=== PATIENT | female | born 1950 | race African-American/Black ===

== ENCOUNTER → 2017-03-17 | Outpatient (CLI) | payer MEDICARE ==
[~2017-03-17] MED LIST: ALENDRONATE SOD70 MG; AMLODIPINE BESY10 MG PO; CALTRATE 600 W1 EACH PO; PRESERVISION A1 EACH; SIMVASTATIN40 MG PO; VITAMIN D1000 UNI1 PO
== END ==
LOC: MAMMO 11:44
PROVIDERS: ATTEND Internal Medicine
DX: Z12.31 Encounter for screening mammogram for malignant neoplasm of breast (principal)
CPT/HCPCS: G0202

== ENCOUNTER → 2018-02-02 | Outpatient (CLI) | payer MEDICARE ==
--- NOTE | 2018-02-11 08:24 | Diagnostic Imaging Report ---
#[id number] - MGSCRBIL #BILATERAL DIGITAL SCREENING MAMMOGRAM WITH CAD: 02/02/2018 CLINICAL: Routine screening. Comparison is made to exams dated: 03/17/2017 mammogram and 05/23/2014 mammogram - [facility]. Current study contains 4 films. There are scattered fibroglandular elements in both breasts. Current study was also evaluated with a Computer Aided Detection (CAD) system. There are scar markers on both breasts. Lymph nodes in the left axilla have a benign appearance. No significant masses, calcifications, or other findings are seen in either breast. There has been no significant interval change. IMPRESSION: BENIGN There is no mammographic evidence of malignancy. A 1 year screening mammogram is recommended. The patient will be notified by letter of the results. Freedom Ruiz Jr., D.O. cw/:02/10/2018 11:22:34 Personal Development Educator: Ilana LINCOLN)(Lisa), [facility] letter sent: Compared to Prior B9 Mammogram BI-RADS: 2 Benign
== END ==
LOC: MAMMO 09:17
PROVIDERS: ATTEND Internal Medicine
DX: Z12.31 Encounter for screening mammogram for malignant neoplasm of breast (principal)
CPT/HCPCS: 77067

== ENCOUNTER → 2018-05-20 | Outpatient (CLI) | payer MEDICARE ==
--- NOTE | 2018-05-20 14:03 | Diagnostic Imaging Report ---
EXAM: CHEST 2 VIEWS, PA and lateral DATE: 05/20/2018 Time stamp on exam: 1:30 PM INDICATION: Bronchitis COMPARISON: None FINDINGS: LINES/TUBES: None LUNGS: No consolidations or edema. PLEURA: No effusions or pneumothorax. HEART AND MEDIASTINUM: Normal size and contour. BONES AND SOFT TISSUES: No acute findings. Mild degenerative changes and mild wedging of a mid thoracic spine vertebral body. IMPRESSION: No acute thoracic abnormality. Signed by: Dr. Freedom Ruiz DO on 05/20/2018 1:59 PM
== END ==
LOC: RAD 13:13
PROVIDERS: ATTEND Internal Medicine
DX: J41.0 Simple chronic bronchitis (principal)
CPT/HCPCS: 71046

== ENCOUNTER → 2019-03-31 | Outpatient (CLI) | payer MEDICARE | LOC: MAMMO 10:37 | PROVIDERS: ATTEND Internal Medicine | DX: Z12.31 Encounter for screening mammogram for malignant neoplasm of breast (principal) | CPT/HCPCS: 77067 ==

== ENCOUNTER → 2019-05-11 | Day surgery (SDC) | payer MEDICARE ==
[2019-05-04 12:41] LABS: BASOPHILS % 0.1 % (0.0-1.0); HEMATOCRIT 36.9 % (34.2-44.1); HEMOGLOBIN 11.9 g/dL (12.0-16.0); LYMPHOCYTES # (AUTO) 1.8 (1.0-3.2); LYMPHOCYTES % 16.3 % (18.0-39.1); MEAN CORPUSCULAR HEMOGLOBIN 29.7 pg (28-32); MEAN CORPUSCULAR HGB CONC 32.2 g/dL (31-35); MONOCYTES # (AUTO) 0.9 (0.2-0.8); MONOCYTES % 8.4 % (4.4-11.3); NEUTROPHILS # (AUTO) 8.4 (2.1-6.9); NEUTROPHILS % 74.8 % (38.7-80.0); PLATELET COUNT 213 x10e3/uL (140-360); RED BLOOD COUNT 4.01 x10e6/uL (3.6-5.1); RED CELL DISTRIBUTION WIDTH 11.9 % (11.7-14.4)
[~2019-05-11] MED LIST changes: -ALENDRONATE SOD70 MG; +ALENDRONATE SOD70 MG PO; +FENTANYL CITRATE/PF 100MCG/2 ML INJ ONE; +GABAPENTIN100 MG PO; +GENERLAC10 GM/15 M PO; +HYOSCYAMINE 0.125 MG TAB ONE; +LOSARTAN POTASS25 MG PO; +MIDAZOLAM HCL 2 MG/2 ML VIAL ONE; +PROPOFOL IV EMULSION 10 MG/ML 50 ML VIAL ONE
--- OUTSIDE RECORDS SUMMARY | 2019-05-11 06:28 | XMS REPORT ---
Author Author [facility] Address Unknown Phone Unavailable Care Team Providers Care Info Specialist Name Role Phone Lisa WAY Unavailable Unavailable KEERTHI OLVERA Unavailable Unavailable Kishore BARTON Unavailable Unavailable Problems This patient has no known problems. Allergies, Adverse Reactions, Alerts This patient has no known allergies or adverse reactions. Medications This patient has no known medications. Results Test Description Test Time Test Comments Text Results Atomic Results Result Comments MAMMOGRAPHY DIGITAL SCR BILAT 2019-03-31 11:19:00 [place] [address] Patient Name: AMOR MATHIAS MR #: [id number] : 1950 Age/Sex: 69/F Req #: [id number] Adm Physician: Ordered by: TODD WAY MD Report #: [id number] Location: MAMMO Room/Bed: Procedure: [id number] MG/MAMMOGRAPHY DIGITAL SCR BILAT Exam Date: 03/31/19 Exam Time: 1040 REPORT STATUS: Signed #[id number] - MGSCRBIL #BILATERAL DIGITAL SCREENING MAMMOGRAM WITH CAD: 03/31/2019 CLINICAL: Routine screening. Comparison is made to exams dated: 02/02/2018 mammogram, 03/17/2017 mammogram, 02/06/2016 mammogram and 05/23/2014 mammogram - [facility]. Current study contains 4 films. There are scattered fibroglandular elements in both breasts. Current study was also evaluated with a Computer Aided Detection (CAD) system. There is a benign intramammary node in the left breast. No significant masses, calcifications, or other findings are seen in either breast. IMPRESSION: BENIGN There is no mammographic evidence of malignancy. A 1 year screening mammogram is recommended. The patient will be notified by letter of the results. LIT BILL M.D. ct/lizett:04/01/2019 16:32:56 Senior Lead Java Developer: Ilana LINCOLN)(Lisa), [facility] letter sent: Normal Exam Mammogram BI-RADS: 2 Benign Dictated By: LIT BILL MD Elec tronically Signed By: LIT BILL MD on 04/01/19 1632 Transcribed By: LIZETT on 04/01/19 163 COPY TO: TODD WAY MD CHEST 2 VIEWS 2018-05-20 13:58:00 [place] [address] Patient Name: AMOR MATHIAS MR #: [id number] : 1950 Age/Sex: 68/F Req #: [id number] Adm Physician: Ordered by: TODD WAY MD Report #: [id number] Location: [facility] Room/Bed: Procedure: [id number] DX/CHEST 2 VIEWS Exam Date: 05/20/18 Exam Time: 1325 REPORT STATUS: Signed EXAM: CHEST 2 VIEWS, PA and lateral DATE: 05/20/[address] amp on exam: 1:30 PM INDICATION: Bronchitis COMPARISON: None FINDINGS: LINES/TUBES: None LUNGS: No consolidations or edema. PLEURA: No effusions or pneumothorax. HEART AND MEDIASTINUM: Normal size and contour. BONES AND SOFT TISSUES: No acute findings. Mild degenerative changes and mild wedging of a mid thoracic spine vertebral body. IMPRESSION: No acute thoracic abnormality. Signed by: Dr. Marianela Ruiz DO on 05/20/2018 1:59 PM Dictated By: MARIANELA RUIZ DO [id number] Transcribed By: MARY on 05/20/18 3219 COPY TO: TODD WAY MD MAMMOGRAPHY DIGITAL SCR BILAT 2018-02-02 09:58:00 [place] [address] Patient Name: AMOR MATHIAS MR #: [id number] : 1950 Age/Sex: 68/F Req #: [id number] Adm Physician: Ordered by: TODD WAY MD Report #: [id number] Location: MAMMO Room/Bed: Procedure: [id number] MG/MAMMOGRAPHY DIGITAL SCR BILAT Exam Date: 02/02/18 Exam Time: 0920 REPORT STATUS: Signed #[id number] - MGSCRBIL #BILATERAL DIGITAL SCREENING MAMMOGRAM WITH CAD: 02/02/2018 CLINICAL: Routine screening. Comparison is made to exams dated: 03/17/2017 mammogram and 05/23/2014 mammogram - [facility]. Current study contains 4 films. There are scattered fibroglandular elements in both breasts. Current study was also evaluated with a Computer Aided Detection (CAD) system. There are scar markers on both breasts. Lymph nodes in the left axilla have a benign appearance. No significant masses, calcifications, or other findings are seen in either breast. There has been no significant interval change. IMPRESSION: BENIGN There is no mammographic evidence of malignancy. A 1 year screening mammogram is recommended. The patient will be notified by letter of the results. Marianela Ruiz Jr., D.O. cw/:02/10/2018 11:22:34 Senior Lead Java Developer: Ilana YANES (R)(Lisa), [facility] letter sent: Compared to Prior B9 Mammogram BI- RADS: 2 Benign Dictated By: MARIANELA RUIZ DO 112 Transcribed By: LIZETT on 02/10/18 112 COPY TO: TODD WAY MD MAMMOGRAPHY DIGITAL SCR BILAT [place] [address] Patient Name: AMOR MATHIAS MR #: [id number] : 1950 Age/Sex: 67/F Req #: [id number] Adm Physician: Ordered by: TODD WAY MD Report #: [id number] Location: MAMMO Room/Bed: Procedure: [id number] MG/MAMMOGRAPHY DIGITAL SCR BILAT Exam Date: 03/17/17 Exam Time: 1206 REPORT STATUS: Signed #[id number] - MGSCRBIL #BILATERAL DIGITAL SCREENING MAMMOGRAM WITH CAD: 03/17/2017 CLINICAL: Routine screening. Comparison is made to exams dated: 02/06/2016 mammogram, 05/23/2014 mammogram and 05/18/2013 mammogram - [facility]. Current study contains 4 films. There are scattered fibroglandular elements in both breasts. Current study was also evaluated with a Computer Aided Detection (CAD) system. No significant masses, calcifications, or other findings are seen in either breast. There is a scar marker on the left breast. There has been no significant interval change. IMPRESSION: NEGATIVE There is no mammographic evidence of malignancy. A 1 year screening mammogram is recommended. The patient will be notified by letter of the results. Marianela Ruiz Jr., D.O. cw/:04/01/2017 12:31:26 Senior Lead Java Developer: Ilana LINCOLN)(Lisa), [facility] letter sent: Compared to Prior B9 Mammogram BI-RADS: 1 Negative Dictated By: MARIANELA RUIZ DO 1231 Transcribed By: LIZETT on 04/01/17 1231 COPY TO: TODD WAY MD CHEST 2 VIEWS [place] [address] Patient Name: AMOR MATHIAS MR #: [id number] : 1950 Age/Sex: 66/F Req #: [id number] Adm Physician: Ordered by: KEERTHI OLVERA MD Report #: [id number] Location: OR Room/Bed: Procedure: [id number] DX/CHEST 2 VIEWS Exam Date: 12/15/16 Exam Time: 1215 REPORT STATUS: Signed PROCEDURE: CHEST 2 VIEWS TECHNIQUE: PA lateral chest INDICATION: Preoperative chest x-ray for right ankle surgery COMPARISON: None. FINDINGS: The lungs are clear and symmetrically inflated. No pleural effusions. Normal heart size and central vasculature. Intact skeleton. Mild degenerative disc disease. CONCLUSION: Normal. Dictated by: Joe Milian M.D. on 12/15/2016 at 13:55 El ectronically approved by: Joe Milian M.D. on 12/15/2016 at 13:55 Dictated By: JOE MILIAN MD 1356 Transcribed By: KRISTINA on 12/15/16 135 COPY TO: KEERTHI OLVERA MD ANKLE 3 + VIEWS RIGHT [place] [address] Patient Name: AMOR MATHIAS MR #: [id number] : 1950 Age/Sex: 66/F Req #: [id number] Adm Physician: Ordered by: ROBIN BARTON MD Report #: [id number] Location: ER Room/Bed: Procedure: [id number] DX/ANKLE 3 + VIEWS RIGHT Exam Date: 12/06/16 Exam Time: 1611 REPORT STATUS: Signed ANKLE 3 + VIEWS RIGHT - 3 views HISTORY: Pain COMPARISON: None available. FINDINGS: See below. IMPRESSION: Mildly displaced lateral malleolar fracture with associated mild soft tissue swelling. Ankle mortise is intact. Signed by: Dr. Geovani Amezquita MD on 12/06/2016 4:53 PM Dictated By: GEOVANI AMEZQUITA MD 52 Transcribed By: MARY on 12/06/161652 COPY TO: ROBIN BARTON MD
[2019-05-11 11:00] VITALS: BP 123/58
--- NOTE | 2019-05-11 12:59 | Operative Report ---
DATE OF PROCEDURE: 05/11/2019 SURGEON: Mariano Schilling MD PROCEDURE: Colonoscopy with polypectomy. INDICATIONS FOR COLONOSCOPY: Colorectal cancer screening. MEDICATIONS: The patient was done under MAC, please see anesthesiologist's note. PROCEDURE IN DETAIL: With the patient in the left lateral decubitus position, a flexible fiberoptic Olympus colonoscope was inserted into the rectum with ease and advanced all the way to the cecum. It was then withdrawn slowly, mucosa overlying the cecum appeared to be within normal limits. One minute polyp was hot biopsied from the ascending colon and site was hemoclipped. The rest of the ascending and transverse appeared to be within normal limits. Approximately 8 mm sessile polyp was removed per snare electrocautery and site was hemoclipped in the descending colon. Some diverticular disease was noted in the distal descending and proximal sigmoid. The rest of the sigmoid as well as the rectum appeared to be within normal limits. The scope was then retroflexed into the distal rectum and the area around the dentate line appeared to be within normal limits. The scope was then straightened out, it was subsequently withdrawn, and the patient tolerated the procedure well. IMPRESSION: 1. Ascending colon polyp, hot biopsied and site hemoclipped. 2. Descending colon polyp, hot snared and site hemoclipped. 3. Diverticulosis. PLAN: Follow up histology. Initiate high-fiber, low-fat diet. Initiate high-fiber supplement. The patient might benefit from a followup colonoscopy in 3 to 5 years. Mariano Schilling MD [facility] [place] /[id number] cc: Greg Morley MD
== END | disposition home or self-care (01) ==
LOC: OR 06:20
PROVIDERS: ATTEND Internal Medicine Gastroenterology
DX: K59.09 Other constipation (principal); K63.5 Polyp of colon; K57.30 Diverticulosis of large intestine without perforation or abscess without bleeding; I10 Essential (primary) hypertension; Z01.810 Encounter for preprocedural cardiovascular examination; Z01.812 Encounter for preprocedural laboratory examination; Z68.32 Body mass index [BMI] 32.0-32.9, adult
CPT/HCPCS: 36415; 45384; 45385; 85025; 88305; 93005; J2250; J2704; J3010; 45378

== ENCOUNTER → 2020-08-31 | Outpatient (CLI) | payer MEDICARE ==
[~2020-08-31] MED LIST changes: -FENTANYL CITRATE/PF 100MCG/2 ML INJ ONE; -HYOSCYAMINE 0.125 MG TAB ONE; -MIDAZOLAM HCL 2 MG/2 ML VIAL ONE; -PROPOFOL IV EMULSION 10 MG/ML 50 ML VIAL ONE
== END ==
LOC: MAMMO 10:03
PROVIDERS: ATTEND Internal Medicine
DX: Z12.31 Encounter for screening mammogram for malignant neoplasm of breast (principal)
CPT/HCPCS: 77067

== ENCOUNTER → 2021-04-19 | Day surgery (SDC) | payer MEDICARE ==
[2021-04-16 14:59] LABS: BASOPHILS % 0.3 % (0.0-1.0); EOSINOPHILS # (AUTO) 0.2 (0.0-0.4); HEMATOCRIT 38.1 % (34.2-44.1); HEMOGLOBIN 11.7 g/dL (12.0-16.0); LYMPHOCYTES # (AUTO) 2.7 (1.0-3.2); LYMPHOCYTES % 39.6 % (18.0-39.1); MEAN CORPUSCULAR HEMOGLOBIN 28.5 pg (28-32); MEAN CORPUSCULAR HGB CONC 30.7 g/dL (31-35); MEAN CORPUSCULAR VOLUME 92.9 fL (81-99); MONOCYTES # (AUTO) 0.6 (0.2-0.8); MONOCYTES % 8.3 % (4.4-11.3); NEUTROPHILS # (AUTO) 3.3 (2.1-6.9); NEUTROPHILS % 48.5 % (38.7-80.0); PLATELET COUNT 237 x10e3/uL (140-360); RED CELL DISTRIBUTION WIDTH 12.5 % (11.7-14.4)
[~2021-04-19] MED LIST changes: +ATORVASTATIN CA10 MG PO; +EPHEDRINE SULFATE INJ 50 MG/ML VIAL ONE; +FENTANYL CITRATE/PF 100MCG/2 ML INJ ONE; +GLUCAGON FOR INJ 1 MG VIAL ONE; +HYOSCYAMINE SULFATE 0.5 MG/ML INJ ONE; +LIDOCAINE HCL 2% LOCAL INJ 5 ML SDV VIAL INJ ONE; +PROPOFOL IV EMULSION 10 MG/ML 20 ML VIAL ONE; +VITAMIN D310 MCG PO
[2021-04-19 10:30] VITALS: BP 107/59
== END | disposition home or self-care (01) ==
LOC: OR 07:00
PROVIDERS: ATTEND Internal Medicine Gastroenterology
DX: R19.5 Other fecal abnormalities (principal); K63.5 Polyp of colon; K57.30 Diverticulosis of large intestine without perforation or abscess without bleeding; K59.01 Slow transit constipation; K64.8 Other hemorrhoids; Z71.3 Dietary counseling and surveillance; I10 Essential (primary) hypertension; E78.5 Hyperlipidemia, unspecified; G62.9 Polyneuropathy, unspecified; R00.1 Bradycardia, unspecified; Z01.810 Encounter for preprocedural cardiovascular examination; Z01.812 Encounter for preprocedural laboratory examination; Z20.822 Contact with and (suspected) exposure to COVID-19; Z79.899 Other long term (current) drug therapy; Z68.34 Body mass index [BMI] 34.0-34.9, adult
CPT/HCPCS: 36415; 45380; 45385; 85025; 88305; 93005; J1610; J1980; J2001; J2704; J3010; U0002; 45378

== ENCOUNTER → 2021-08-19 | Outpatient (CLI) | payer MEDICARE ==
[~2021-08-19] MED LIST changes: -EPHEDRINE SULFATE INJ 50 MG/ML VIAL ONE; -FENTANYL CITRATE/PF 100MCG/2 ML INJ ONE; -GLUCAGON FOR INJ 1 MG VIAL ONE; -HYOSCYAMINE SULFATE 0.5 MG/ML INJ ONE; -LIDOCAINE HCL 2% LOCAL INJ 5 ML SDV VIAL INJ ONE; -PROPOFOL IV EMULSION 10 MG/ML 20 ML VIAL ONE
== END ==
LOC: MAMMO 11:16
PROVIDERS: ATTEND Internal Medicine
DX: Z12.31 Encounter for screening mammogram for malignant neoplasm of breast (principal)
CPT/HCPCS: 77067

== ENCOUNTER → 2022-01-15 | Outpatient (CLI) | payer MEDICARE | LOC: MRI 10:39 | PROVIDERS: ATTEND Internal Medicine | DX: M47.12 Other spondylosis with myelopathy, cervical region (principal) | CPT/HCPCS: 72141 ==

== ENCOUNTER → 2023-12-09 | Outpatient (REF) | payer MEDICARE | LOC: MAMMO 08:20 | PROVIDERS: ATTEND Internal Medicine | DX: Z12.31 Encounter for screening mammogram for malignant neoplasm of breast (principal) | CPT/HCPCS: 77067 ==